=== PATIENT | male | born 1995 | race Caucasian/White ===

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

== ENCOUNTER 2018-02-15 09:47 | Emergency (ER) | payer OTHER ==
[~2018-02-15] VITALS: Ht 167.6 cm; Wt 74.4 kg
[2018-02-15 09:50] VITALS: BP 153/67
--- NOTE | 2018-02-15 09:54 | NUR ---
Patient being evaluated by physician at bedside.
--- NOTE | 2018-02-15 09:54 | NUR ---
PT AMBULATES TO BED 2
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
[2018-02-15] MEDS ORDERED: ceFAZolin 1,000 MG VIAL IM ONE (10:15)
[2018-02-15] MEDS ORDERED: WATER STERILE 10 ML VIAL MC ONE (10:45)
--- NOTE | 2018-02-15 11:00 | NUR ---
pt resting comfortably in [facility] w/ vss and rr even and unlabored, pt needs met. safety precautions in place, will continue to monitor.
[2018-02-15 11:28] VITALS: BP 153/67
--- NOTE | 2018-02-15 11:28 | NUR ---
Patient discharged with v/s stable. Written and verbal after care instructions given and explained. Patient alert, oriented and verbalized understanding of instructions. Ambulatory with steady gait. All questions addressed prior to discharge. ID band removed. Patient advised to follow up with PMD. Rx of Naprosyn and Keflex given. Patient educated on indication of medication including possible reaction and side effects. Opportunity to ask questions provided and answered.
== END 2018-02-15 11:28 | disposition home or self-care (01) ==
LOC: MED 09:47
DX: L03.012 Cellulitis of left finger (principal)
CPT/HCPCS: 73130; 90471; 90715; 96372; 99284; J0690; Q0092